=== PATIENT | female | born 1975 | race Caucasian/White ===

== ENCOUNTER 2021-01-23 16:32 | Inpatient (IN) | payer MEDICAID, OTHER ==
[~2021-01-23] VITALS: Ht 177.8 cm; Wt 101.6 kg
[~2021-01-23 16:32] MED LIST: FOLI-130 PO; GABA-1181 PO; LOSA25TA21 PO; MAGN400T7 PO; MIRT30 PO; MULT-1239 PO; THIAMINE HCL100 MG PO; TRAZ150T80 PO
[2021-01-23 17:47] LABS: BASOPHILS % (AUTO) 1.4 % (0.0-2.0); EOSINOPHILS % (AUTO) 1.7 % (1.0-6.0); HEMATOCRIT 28.2 % (36-46); HEMOGLOBIN 8.2 g/dL (12.0-16.0); LYMPHOCYTES # (AUTO) 2.1 K/uL (1.0-4.8); LYMPHOCYTES % (AUTO) 39.9 % (22.0-44.0); MEAN CORPUSCULAR HEMOGLOBIN 19.9 pg (26.0-34.0); MEAN CORPUSCULAR HGB CONC 29.3 G/dL (31.0-37.0); MEAN CORPUSCULAR VOLUME 68 fL (80-100); MONOCYTES # (AUTO) 0.5 K/uL (0.1-1.0); MONOCYTES % (AUTO) 8.7 % (2.0-9.0); NEUTROPHILS # (AUTO) 2.6 K/uL (1.8-7.7); NEUTROPHILS % (AUTO) 48.3 % (40.0-70.0); PLATELET COUNT (AUTO) 261 K/uL (150-450); RED BLOOD CELL COUNT(AUTO) 4.15 MIL/uL (4.00-5.20); RED CELL DISTRIBUTION WIDTH 19.8 % (11.5-14.5)
[2021-01-23 17:55] LABS: ANION GAP 11 mmol/L (8-16); CALCIUM, TOTAL 8.7 mg/dL (8.8-10.5); CARBON DIOXIDE 26 mmol/L (22-29); CHLORIDE 107 mmol/L (98-107); CREATININE 0.87 mg/dL (0.60-1.30); GLOMERULAR FILTR. RATE CALC > 60 mL/min (>60); GLUCOSE,RANDOM 94 mg/dL (70-110); POTASSIUM 4.6 mmol/L (3.5-5.1); SODIUM SERUM 144 mmol/L (136-145); UREA NITROGEN, BLOOD 11 mg/dL (7-18)
[2021-01-23 18:07] LABS: ALANINE AMINOTRANSFERASE 26 U/L (12-78); ALBUMIN 3.4 g/dL (3.4-5.0); ALKALINE PHOSPHATASE 118 U/L (46-116); ASPARTATE AMINOTRANSFERASE 25 U/L (15-37); BILIRUBIN,TOTAL 0.4 mg/dL (0.1-1.0); HCG,QUANTITATIVE 1 mIU/mL (0-6); TOTAL PROTEIN, SERUM 7.9 g/dL (6.4-8.2)
[2021-01-23 18:22] LABS: AMPHET/METH SCREEN,URINE NEGATIVE (NEGATIVE); BARBITURATE SCREEN, URINE NEGATIVE (NEGATIVE); BENZODIAZEPINES SCREEN,URINE NEGATIVE (NEGATIVE); CANNABINOID SCREEN,URINE NEGATIVE (NEGATIVE); COCAINE SCREEN,URINE NEGATIVE (NEGATIVE); METHADONE SCREEN, URINE NEGATIVE (NEGATIVE); OPIATE SCREEN,URINE NEGATIVE (NEGATIVE)
[2021-01-23 18:25] LABS: PHENCYCLIDINE SCREEN,URINE NEGATIVE (NEGATIVE)
[2021-01-23] MEDS ORDERED: ZOLPIDEM TARTRATE 10 MG TABLET PO PRN (18:30)
[2021-01-23] MEDS ORDERED: LORazepam 2 MG TABLET PO PRN (18:30)
[2021-01-23 18:40] LABS: COVID AG,FIA SOURCE NASOPHARYNGEAL
[2021-01-23] MEDS ORDERED: ACETAMINOPHEN 325 MG TABLET PO ONE (22:00)
[2021-01-23] MEDS ORDERED: ONDANSETRON HCL 4 MG TABLET PO ONE (22:00)
[2021-01-24 02:23] VITALS: BP 136/87
[2021-01-24] MEDS ORDERED: INFLUENZA VIRUS VACCINE QVS 2021-22 (6MO+)/PF 60 MCG/0.5 ML SYRINGE IM. ONE (03:30)
[2021-01-24 08:17] LABS: CHOL/HDL RATIO 1.9 (3.9-5.7); FREE T4 (FREE THYROXINE) 0.9 ng/dL (0.76-1.46); THYROID STIMULATING HORMONE 1.11 uIU/mL (0.36-3.74)
[2021-01-24 08:25] VITALS: BP 150/85
[2021-01-24] MEDS ORDERED: IBUPROFEN 600 MG TABLET PO PRN (09:00)
[2021-01-24] MEDS ORDERED: ACETAMINOPHEN 325 MG TABLET PO PRN (09:00)
[2021-01-24] MEDS ORDERED: DOCUSATE SODIUM 100 MG CAPSULE PO PRN (09:00)
[2021-01-24] MEDS ORDERED: ALBUTEROL SULFATE HFA 90 MCG/PUFF 8 GM INHALER IH PRN (09:00)
[2021-01-24] MEDS ORDERED: BENZOCAINE/MENTHOL LOZENGE PO PRN (09:00)
[2021-01-24] MEDS: GABAPENTIN 300 MG CAPSULE PO SCH ×3 (09:00→16:29)
[2021-01-24] MEDS ORDERED: CloNIDine HCL 0.1 MG TABLET PO PRN (09:00)
[2021-01-24] MEDS ORDERED: ONDANSETRON HCL 4 MG TABLET PO PRN (09:00)
[2021-01-24] MEDS ORDERED: LOPERAMIDE HCL 2 MG CAPSULE PO PRN (09:00)
[2021-01-24] MEDS ORDERED: OMEPRAZOLE 20 MG CAPSULE PO PRN (09:00)
[2021-01-24] MEDS ORDERED: MAGNESIUM HYDROXIDE SUSPENSION 30 ML UDCUP PO PRN (09:00)
[2021-01-24] MEDS: MULTIVITAMINS WITH MINERALS, THERAPEUTIC TABLET PO SCH (09:11)
[2021-01-24] MEDS: FOLIC ACID 1 MG TABLET PO SCH (09:11)
[2021-01-24] MEDS: THIAMINE 100 MG TABLET PO SCH (09:11)
[2021-01-24 10:00] VITALS: BP 140/80
[2021-01-24] MEDS: LOSARTAN POTASSIUM 25 MG TABLET PO SCH (13:11)
[2021-01-24 16:20] VITALS: BP 145/86
[2021-01-24] MEDS: TraZODone HCL 150 MG TABLET PO SCH (20:23)
[2021-01-24] MEDS: MIRTAZAPINE 30 MG TABLET PO SCH (20:23)
[2021-01-25 06:03] VITALS: BP 134/86
[2021-01-25 08:31] VITALS: BP 141/91
[2021-01-25] MEDS: LOSARTAN POTASSIUM 25 MG TABLET PO SCH (08:53)
[2021-01-25] MEDS: FOLIC ACID 1 MG TABLET PO SCH (08:54)
[2021-01-25] MEDS: MULTIVITAMINS WITH MINERALS, THERAPEUTIC TABLET PO SCH (08:54)
[2021-01-25] MEDS: THIAMINE 100 MG TABLET PO SCH (08:54)
[2021-01-25] MEDS: GABAPENTIN 300 MG CAPSULE PO SCH ×3 (09:00→17:00)
[2021-01-25 16:23] VITALS: BP 133/77
[2021-01-25] MEDS: MIRTAZAPINE 30 MG TABLET PO SCH (21:00)
[2021-01-25] MEDS: TraZODone HCL 150 MG TABLET PO SCH (21:00)
[2021-01-26 05:07] VITALS: BP 130/72
[2021-01-26] MEDS: LOSARTAN POTASSIUM 25 MG TABLET PO SCH (09:07)
[2021-01-26] MEDS: FOLIC ACID 1 MG TABLET PO SCH (09:07)
[2021-01-26] MEDS: MULTIVITAMINS WITH MINERALS, THERAPEUTIC TABLET PO SCH (09:08)
[2021-01-26] MEDS: THIAMINE 100 MG TABLET PO SCH (09:08)
[2021-01-26] MEDS: GABAPENTIN 300 MG CAPSULE PO SCH ×3 (09:08→17:00)
[2021-01-26] MEDS: BACITRACIN 28 GM OINTMENT TP PRN (09:57)
[2021-01-26 10:32] VITALS: BP 118/65
[2021-01-26 16:16] VITALS: BP 129/86
[2021-01-26] MEDS: HALOPERIDOL 5 MG TABLET PO SCH (21:35)
[2021-01-27 04:10] VITALS: BP 130/68
[2021-01-27 08:23] VITALS: BP 118/85
[2021-01-27] MEDS: MULTIVITAMINS WITH MINERALS, THERAPEUTIC TABLET PO SCH (08:40)
[2021-01-27] MEDS: THIAMINE 100 MG TABLET PO SCH (08:40)
[2021-01-27] MEDS: FOLIC ACID 1 MG TABLET PO SCH (08:40)
[2021-01-27] MEDS: GABAPENTIN 300 MG CAPSULE PO SCH ×5 (08:42→20:42)
[2021-01-27] MEDS: LOSARTAN POTASSIUM 25 MG TABLET PO SCH (08:43)
[2021-01-27 16:13] VITALS: BP 107/74
[2021-01-27] MEDS: HALOPERIDOL 5 MG TABLET PO SCH (20:35)
[2021-01-28 04:37] VITALS: BP 120/70
[2021-01-28 08:31] VITALS: BP 121/84
[2021-01-28] MEDS: FOLIC ACID 1 MG TABLET PO SCH (08:44)
[2021-01-28] MEDS: THIAMINE 100 MG TABLET PO SCH (08:44)
[2021-01-28] MEDS: LOSARTAN POTASSIUM 25 MG TABLET PO SCH (08:44)
[2021-01-28] MEDS: MULTIVITAMINS WITH MINERALS, THERAPEUTIC TABLET PO SCH (08:45)
[2021-01-28] MEDS: GABAPENTIN 300 MG CAPSULE PO SCH ×3 (08:49→17:00)
[2021-01-28 16:20] VITALS: BP 120/77
[2021-01-28] MEDS: HALOPERIDOL 5 MG TABLET PO SCH (21:00)
[2021-01-29 02:07] VITALS: BP 112/67
[2021-01-29 07:36] LABS: COVID AG,FIA SOURCE NASOPHARYNGEAL
[2021-01-29] MEDS: MULTIVITAMINS WITH MINERALS, THERAPEUTIC TABLET PO SCH (08:05)
[2021-01-29] MEDS: FOLIC ACID 1 MG TABLET PO SCH (08:05)
[2021-01-29] MEDS: LOSARTAN POTASSIUM 25 MG TABLET PO SCH (08:05)
[2021-01-29] MEDS: THIAMINE 100 MG TABLET PO SCH (08:05)
[2021-01-29] MEDS: GABAPENTIN 300 MG CAPSULE PO SCH ×3 (08:06→16:34)
[2021-01-29 08:14] VITALS: BP 129/74
[2021-01-29 16:09] VITALS: BP 130/77
[2021-01-29] MEDS: PETROLATUM,WHITE 28 GM JELLY TP PRN (16:39)
[2021-01-29] MEDS: HALOPERIDOL 5 MG TABLET PO SCH (20:17)
[2021-01-30 02:09] VITALS: BP 122/73
[2021-01-30] MEDS: MULTIVITAMINS WITH MINERALS, THERAPEUTIC TABLET PO SCH (08:05)
[2021-01-30] MEDS: FOLIC ACID 1 MG TABLET PO SCH (08:05)
[2021-01-30] MEDS: LOSARTAN POTASSIUM 25 MG TABLET PO SCH (08:05)
[2021-01-30] MEDS: THIAMINE 100 MG TABLET PO SCH (08:05)
[2021-01-30] MEDS: GABAPENTIN 300 MG CAPSULE PO SCH ×3 (08:05→16:36)
[2021-01-30 08:30] VITALS: BP 144/87
[2021-01-30] MEDS: BACITRACIN 28 GM OINTMENT TP PRN (08:56)
[2021-01-30 16:12] VITALS: BP 134/76
[2021-01-30] MEDS: HALOPERIDOL 5 MG TABLET PO SCH (21:00)
[2021-01-31 00:48] VITALS: BP 130/86
[2021-01-31] MEDS: LOSARTAN POTASSIUM 25 MG TABLET PO SCH (08:08)
[2021-01-31] MEDS: MULTIVITAMINS WITH MINERALS, THERAPEUTIC TABLET PO SCH (08:09)
[2021-01-31] MEDS: GABAPENTIN 300 MG CAPSULE PO SCH ×3 (08:09→16:43)
[2021-01-31] MEDS: THIAMINE 100 MG TABLET PO SCH (08:09)
[2021-01-31] MEDS: BACITRACIN 28 GM OINTMENT TP PRN (08:09)
[2021-01-31] MEDS: FOLIC ACID 1 MG TABLET PO SCH (08:09)
[2021-01-31 08:35] VITALS: BP 136/85
[2021-01-31 16:30] VITALS: BP 118/82
[2021-01-31] MEDS: HALOPERIDOL 5 MG TABLET PO SCH (20:34)
[2021-02-01 05:55] VITALS: BP 132/76
[2021-02-01] MEDS: MULTIVITAMINS WITH MINERALS, THERAPEUTIC TABLET PO SCH (08:40)
[2021-02-01] MEDS: GABAPENTIN 300 MG CAPSULE PO SCH ×3 (08:40→17:00)
[2021-02-01] MEDS: FOLIC ACID 1 MG TABLET PO SCH (08:40)
[2021-02-01] MEDS: LOSARTAN POTASSIUM 25 MG TABLET PO SCH (08:40)
[2021-02-01] MEDS: THIAMINE 100 MG TABLET PO SCH (08:41)
[2021-02-01 16:26] VITALS: BP 120/82
[2021-02-01] MEDS: HALOPERIDOL 5 MG TABLET PO SCH (20:13)
[2021-02-02 00:58] VITALS: BP 112/77
[2021-02-02] MEDS: LOSARTAN POTASSIUM 25 MG TABLET PO SCH (08:39)
[2021-02-02] MEDS: THIAMINE 100 MG TABLET PO SCH (08:40)
[2021-02-02] MEDS: FOLIC ACID 1 MG TABLET PO SCH (08:40)
[2021-02-02] MEDS: MULTIVITAMINS WITH MINERALS, THERAPEUTIC TABLET PO SCH (08:40)
[2021-02-02] MEDS: GABAPENTIN 300 MG CAPSULE PO SCH ×3 (08:40→16:36)
[2021-02-02 16:12] VITALS: BP 120/89
[2021-02-02] MEDS: HALOPERIDOL 10 MG TABLET PO SCH (20:21)
[2021-02-03 02:16] VITALS: BP 126/81
[2021-02-03 08:16] VITALS: BP 130/82
[2021-02-03] MEDS: GABAPENTIN 300 MG CAPSULE PO SCH ×3 (09:00→16:28)
[2021-02-03] MEDS: LOSARTAN POTASSIUM 25 MG TABLET PO SCH (09:04)
[2021-02-03] MEDS: THIAMINE 100 MG TABLET PO SCH (09:04)
[2021-02-03] MEDS: MULTIVITAMINS WITH MINERALS, THERAPEUTIC TABLET PO SCH (09:04)
[2021-02-03] MEDS: FOLIC ACID 1 MG TABLET PO SCH (09:04)
[2021-02-03 16:34] VITALS: BP 129/78
[2021-02-03] MEDS ORDERED: HALOPERIDOL LACTATE 5 MG/ML VIAL IM ONE (19:00)
[2021-02-03] MEDS ORDERED: LORazepam 2 MG/ML VIAL IM ONE (19:00)
[2021-02-03] MEDS ORDERED: DiphenhydrAMINE HCL 50 MG/ML VIAL IM ONE (19:00)
[2021-02-03] MEDS: HALOPERIDOL 10 MG TABLET PO SCH (20:49)
[2021-02-04 00:25] VITALS: BP 122/73
[2021-02-04] MEDS: THIAMINE 100 MG TABLET PO SCH (08:47)
[2021-02-04] MEDS: FOLIC ACID 1 MG TABLET PO SCH (08:47)
[2021-02-04] MEDS: LOSARTAN POTASSIUM 25 MG TABLET PO SCH (08:47)
[2021-02-04] MEDS: MULTIVITAMINS WITH MINERALS, THERAPEUTIC TABLET PO SCH (08:47)
[2021-02-04] MEDS: GABAPENTIN 300 MG CAPSULE PO SCH ×3 (08:52→17:00)
[2021-02-04 16:03] VITALS: BP 128/70
[2021-02-04] MEDS: HALOPERIDOL 10 MG TABLET PO SCH (21:00)
[2021-02-05 00:33] VITALS: BP 122/68
[2021-02-05 07:28] LABS: COVID AG,FIA SOURCE NASAL SWAB
[2021-02-05] MEDS: GABAPENTIN 300 MG CAPSULE PO SCH ×3 (08:08→17:42)
[2021-02-05] MEDS: THIAMINE 100 MG TABLET PO SCH (08:08)
[2021-02-05] MEDS: FOLIC ACID 1 MG TABLET PO SCH (08:09)
[2021-02-05] MEDS: MULTIVITAMINS WITH MINERALS, THERAPEUTIC TABLET PO SCH (08:09)
[2021-02-05] MEDS: LOSARTAN POTASSIUM 25 MG TABLET PO SCH (08:09)
[2021-02-05 09:56] VITALS: BP 120/82
[2021-02-05] MEDS ORDERED: HALOPERIDOL LACTATE 5 MG/ML VIAL IM PRN (15:45)
[2021-02-05 16:34] VITALS: BP 124/86
[2021-02-05] MEDS: HALOPERIDOL 10 MG TABLET PO SCH (20:22)
[2021-02-06 04:19] VITALS: BP 116/74
[2021-02-06] MEDS: LOSARTAN POTASSIUM 25 MG TABLET PO SCH (08:39)
[2021-02-06] MEDS: THIAMINE 100 MG TABLET PO SCH (08:39)
[2021-02-06] MEDS: FOLIC ACID 1 MG TABLET PO SCH (08:39)
[2021-02-06] MEDS: MULTIVITAMINS WITH MINERALS, THERAPEUTIC TABLET PO SCH (08:39)
[2021-02-06] MEDS: GABAPENTIN 300 MG CAPSULE PO SCH ×3 (08:44→16:09)
[2021-02-06 16:09] VITALS: BP 106/81
[2021-02-06] MEDS: HALOPERIDOL 10 MG TABLET PO SCH (20:26)
[2021-02-07 01:07] VITALS: BP 100/72
[2021-02-07] MEDS: THIAMINE 100 MG TABLET PO SCH (08:40)
[2021-02-07] MEDS: LOSARTAN POTASSIUM 25 MG TABLET PO SCH (08:40)
[2021-02-07] MEDS: FOLIC ACID 1 MG TABLET PO SCH (08:40)
[2021-02-07] MEDS: MULTIVITAMINS WITH MINERALS, THERAPEUTIC TABLET PO SCH (08:40)
[2021-02-07] MEDS: GABAPENTIN 300 MG CAPSULE PO SCH ×3 (08:41→17:00)
[2021-02-07 16:18] VITALS: BP 120/85
[2021-02-07] MEDS: HALOPERIDOL 10 MG TABLET PO SCH (20:19)
[2021-02-08 00:36] VITALS: BP 112/73
[2021-02-08] MEDS: MULTIVITAMINS WITH MINERALS, THERAPEUTIC TABLET PO SCH (08:24)
[2021-02-08] MEDS: THIAMINE 100 MG TABLET PO SCH (08:24)
[2021-02-08] MEDS: FOLIC ACID 1 MG TABLET PO SCH (08:24)
[2021-02-08] MEDS: LOSARTAN POTASSIUM 25 MG TABLET PO SCH (08:24)
[2021-02-08] MEDS: GABAPENTIN 300 MG CAPSULE PO SCH ×3 (08:31→17:00)
[2021-02-08 08:32] VITALS: BP 129/87
[2021-02-08 16:23] VITALS: BP 110/89
[2021-02-08] MEDS: HALOPERIDOL 10 MG TABLET PO SCH (20:33)
[2021-02-09 01:09] VITALS: BP 130/76
[2021-02-09] MEDS: GABAPENTIN 300 MG CAPSULE PO SCH ×3 (08:18→16:22)
[2021-02-09] MEDS: FOLIC ACID 1 MG TABLET PO SCH (08:18)
[2021-02-09] MEDS: LOSARTAN POTASSIUM 25 MG TABLET PO SCH (08:18)
[2021-02-09] MEDS: MULTIVITAMINS WITH MINERALS, THERAPEUTIC TABLET PO SCH (08:19)
[2021-02-09] MEDS: THIAMINE 100 MG TABLET PO SCH (08:19)
[2021-02-09 08:21] VITALS: BP 112/70
[2021-02-09 16:17] VITALS: BP 104/67
[2021-02-09] MEDS: HALOPERIDOL 10 MG TABLET PO SCH (20:01)
[2021-02-10 06:40] VITALS: BP 120/68
[2021-02-10] MEDS: FOLIC ACID 1 MG TABLET PO SCH (08:29)
[2021-02-10] MEDS: THIAMINE 100 MG TABLET PO SCH (08:29)
[2021-02-10] MEDS: MULTIVITAMINS WITH MINERALS, THERAPEUTIC TABLET PO SCH (08:29)
[2021-02-10] MEDS: LOSARTAN POTASSIUM 25 MG TABLET PO SCH (08:29)
[2021-02-10] MEDS: GABAPENTIN 300 MG CAPSULE PO SCH ×3 (08:35→16:09)
[2021-02-10 08:45] VITALS: BP 105/68
[2021-02-10 16:35] VITALS: BP 101/68
[2021-02-10] MEDS: HALOPERIDOL 10 MG TABLET PO SCH (20:41)
[2021-02-11 05:07] VITALS: BP 118/64
[2021-02-11] MEDS: THIAMINE 100 MG TABLET PO SCH (08:09)
[2021-02-11] MEDS: LOSARTAN POTASSIUM 25 MG TABLET PO SCH (08:09)
[2021-02-11] MEDS: MULTIVITAMINS WITH MINERALS, THERAPEUTIC TABLET PO SCH (08:09)
[2021-02-11] MEDS: FOLIC ACID 1 MG TABLET PO SCH (08:09)
[2021-02-11] MEDS: GABAPENTIN 300 MG CAPSULE PO SCH ×3 (08:11→16:40)
[2021-02-11 08:54] VITALS: BP 120/83
[2021-02-11 16:14] VITALS: BP 110/74
[2021-02-11] MEDS: HALOPERIDOL 10 MG TABLET PO SCH (20:40)
[2021-02-12 01:41] VITALS: BP 116/77
[2021-02-12 08:36] VITALS: BP 117/77
[2021-02-12] MEDS: LOSARTAN POTASSIUM 25 MG TABLET PO SCH (08:46)
[2021-02-12] MEDS: FOLIC ACID 1 MG TABLET PO SCH (08:46)
[2021-02-12] MEDS: THIAMINE 100 MG TABLET PO SCH (08:46)
[2021-02-12] MEDS: MULTIVITAMINS WITH MINERALS, THERAPEUTIC TABLET PO SCH (08:46)
[2021-02-12] MEDS: GABAPENTIN 300 MG CAPSULE PO SCH ×3 (08:47→16:28)
[2021-02-12 09:41] LABS: COVID AG,FIA SOURCE NASOPHARYNGEAL
[2021-02-12 16:08] VITALS: BP 122/81
[2021-02-12] MEDS: BENZTROPINE MESYLATE 1 MG TABLET PO SCH (20:38)
[2021-02-12] MEDS: HALOPERIDOL 10 MG TABLET PO SCH (20:38)
[2021-02-13 00:39] VITALS: BP 116/78
[2021-02-13] MEDS: MULTIVITAMINS WITH MINERALS, THERAPEUTIC TABLET PO SCH (08:41)
[2021-02-13] MEDS: BENZTROPINE MESYLATE 1 MG TABLET PO SCH ×2 (08:41→16:33)
[2021-02-13] MEDS: THIAMINE 100 MG TABLET PO SCH (08:41)
[2021-02-13] MEDS: FOLIC ACID 1 MG TABLET PO SCH (08:41)
[2021-02-13] MEDS: LOSARTAN POTASSIUM 25 MG TABLET PO SCH (08:41)
[2021-02-13 09:08] VITALS: BP 112/78
[2021-02-13 16:11] VITALS: BP 128/83
[2021-02-13] MEDS: HALOPERIDOL 10 MG TABLET PO SCH (20:32)
[2021-02-14 00:29] VITALS: BP 116/76
[2021-02-14] MEDS: MULTIVITAMINS WITH MINERALS, THERAPEUTIC TABLET PO SCH (08:35)
[2021-02-14] MEDS: BENZTROPINE MESYLATE 1 MG TABLET PO SCH ×3 (08:35→20:25)
[2021-02-14] MEDS: LOSARTAN POTASSIUM 25 MG TABLET PO SCH (08:35)
[2021-02-14] MEDS: FOLIC ACID 1 MG TABLET PO SCH (08:35)
[2021-02-14] MEDS: THIAMINE 100 MG TABLET PO SCH (08:35)
[2021-02-14 10:21] VITALS: BP 115/72
[2021-02-14 16:31] VITALS: BP 112/71
[2021-02-14] MEDS: HALOPERIDOL 10 MG TABLET PO SCH (20:19)
[2021-02-15 01:33] VITALS: BP 118/74
[2021-02-15] MEDS: MULTIVITAMINS WITH MINERALS, THERAPEUTIC TABLET PO SCH (08:32)
[2021-02-15] MEDS: BENZTROPINE MESYLATE 1 MG TABLET PO SCH ×2 (08:32→16:14)
[2021-02-15] MEDS: LOSARTAN POTASSIUM 25 MG TABLET PO SCH (08:32)
[2021-02-15] MEDS: FOLIC ACID 1 MG TABLET PO SCH (08:32)
[2021-02-15] MEDS: THIAMINE 100 MG TABLET PO SCH (08:33)
[2021-02-15 08:37] VITALS: BP 118/79
[2021-02-15 16:15] VITALS: BP 111/74
[2021-02-15] MEDS: HALOPERIDOL 10 MG TABLET PO SCH (20:26)
[2021-02-16 01:53] VITALS: BP 116/68
[2021-02-16] MEDS: THIAMINE 100 MG TABLET PO SCH (08:10)
[2021-02-16] MEDS: BENZTROPINE MESYLATE 1 MG TABLET PO SCH ×2 (08:10→17:00)
[2021-02-16] MEDS: MULTIVITAMINS WITH MINERALS, THERAPEUTIC TABLET PO SCH (08:10)
[2021-02-16] MEDS: FOLIC ACID 1 MG TABLET PO SCH (08:10)
[2021-02-16] MEDS: LOSARTAN POTASSIUM 25 MG TABLET PO SCH (08:10)
[2021-02-16 08:29] VITALS: BP 109/79
[2021-02-16 17:13] VITALS: BP 115/77
[2021-02-16] MEDS: HALOPERIDOL 10 MG TABLET PO SCH (21:00)
[2021-02-17 00:55] VITALS: BP 110/73
[2021-02-17] MEDS: LOSARTAN POTASSIUM 25 MG TABLET PO SCH (08:10)
[2021-02-17] MEDS: MULTIVITAMINS WITH MINERALS, THERAPEUTIC TABLET PO SCH (08:10)
[2021-02-17] MEDS: THIAMINE 100 MG TABLET PO SCH (08:10)
[2021-02-17] MEDS: FOLIC ACID 1 MG TABLET PO SCH (08:10)
[2021-02-17] MEDS: BENZTROPINE MESYLATE 1 MG TABLET PO SCH ×2 (08:10→16:59)
[2021-02-17 08:31] VITALS: BP 109/76
[2021-02-17 16:21] VITALS: BP 117/77
[2021-02-17] MEDS: HALOPERIDOL 10 MG TABLET PO SCH (21:00)
[2021-02-18 01:32] VITALS: BP 114/61
[2021-02-18] MEDS: MULTIVITAMINS WITH MINERALS, THERAPEUTIC TABLET PO SCH (08:17)
[2021-02-18] MEDS: BENZTROPINE MESYLATE 1 MG TABLET PO SCH ×2 (08:17→16:15)
[2021-02-18] MEDS: THIAMINE 100 MG TABLET PO SCH (08:17)
[2021-02-18] MEDS: FOLIC ACID 1 MG TABLET PO SCH (08:17)
[2021-02-18] MEDS: LOSARTAN POTASSIUM 25 MG TABLET PO SCH (08:18)
[2021-02-18 08:36] VITALS: BP 114/81
[2021-02-18 16:18] VITALS: BP 132/70
[2021-02-18] MEDS: HALOPERIDOL 10 MG TABLET PO SCH (20:31)
[2021-02-19 00:34] VITALS: BP 122/74
[2021-02-19 08:09] VITALS: BP 110/70
[2021-02-19] MEDS: THIAMINE 100 MG TABLET PO SCH (08:16)
[2021-02-19] MEDS: BENZTROPINE MESYLATE 1 MG TABLET PO SCH ×2 (08:16→16:35)
[2021-02-19] MEDS: FOLIC ACID 1 MG TABLET PO SCH (08:16)
[2021-02-19] MEDS: MULTIVITAMINS WITH MINERALS, THERAPEUTIC TABLET PO SCH (08:16)
[2021-02-19] MEDS: LOSARTAN POTASSIUM 25 MG TABLET PO SCH (08:16)
[2021-02-19 10:03] LABS: GLUCOMETER DEV NAME(LOC) POC.BV
[2021-02-19 16:28] VITALS: BP 116/63
[2021-02-19] MEDS: HALOPERIDOL 10 MG TABLET PO SCH (21:02)
[2021-02-20 00:41] VITALS: BP 114/75
[2021-02-20] MEDS: LOSARTAN POTASSIUM 25 MG TABLET PO SCH (08:23)
[2021-02-20] MEDS: MULTIVITAMINS WITH MINERALS, THERAPEUTIC TABLET PO SCH (08:23)
[2021-02-20] MEDS: FOLIC ACID 1 MG TABLET PO SCH (08:23)
[2021-02-20] MEDS: THIAMINE 100 MG TABLET PO SCH (08:23)
[2021-02-20] MEDS: BENZTROPINE MESYLATE 1 MG TABLET PO SCH ×2 (08:23→16:13)
[2021-02-20 08:50] VITALS: BP 123/79
[2021-02-20 16:10] VITALS: BP 113/75
[2021-02-20] MEDS: HALOPERIDOL 10 MG TABLET PO SCH (20:43)
[2021-02-21 00:11] VITALS: BP 116/71
[2021-02-21] MEDS: THIAMINE 100 MG TABLET PO SCH (08:11)
[2021-02-21] MEDS: MULTIVITAMINS WITH MINERALS, THERAPEUTIC TABLET PO SCH (08:11)
[2021-02-21] MEDS: FOLIC ACID 1 MG TABLET PO SCH (08:11)
[2021-02-21] MEDS: BENZTROPINE MESYLATE 1 MG TABLET PO SCH ×2 (08:11→17:00)
[2021-02-21] MEDS: LOSARTAN POTASSIUM 25 MG TABLET PO SCH (08:11)
[2021-02-21 08:42] VITALS: BP 123/84
[2021-02-21 16:13] VITALS: BP 123/85
[2021-02-21] MEDS: HALOPERIDOL 10 MG TABLET PO SCH (20:17)
[2021-02-22 00:40] VITALS: BP 110/78
[2021-02-22 08:07] VITALS: BP 114/83
[2021-02-22] MEDS: FOLIC ACID 1 MG TABLET PO SCH (08:10)
[2021-02-22] MEDS: THIAMINE 100 MG TABLET PO SCH (08:10)
[2021-02-22] MEDS: MULTIVITAMINS WITH MINERALS, THERAPEUTIC TABLET PO SCH (08:10)
[2021-02-22] MEDS: BENZTROPINE MESYLATE 1 MG TABLET PO SCH ×2 (08:10→16:21)
[2021-02-22] MEDS: LOSARTAN POTASSIUM 25 MG TABLET PO SCH (08:10)
[2021-02-22 16:19] VITALS: BP 126/84
[2021-02-22] MEDS: HALOPERIDOL 10 MG TABLET PO SCH (20:25)
[2021-02-23 01:55] VITALS: BP 120/82
[2021-02-23 08:24] VITALS: BP 113/78
[2021-02-23] MEDS: MULTIVITAMINS WITH MINERALS, THERAPEUTIC TABLET PO SCH (08:42)
[2021-02-23] MEDS: FOLIC ACID 1 MG TABLET PO SCH (08:42)
[2021-02-23] MEDS: THIAMINE 100 MG TABLET PO SCH (08:42)
[2021-02-23] MEDS: LOSARTAN POTASSIUM 25 MG TABLET PO SCH (08:42)
[2021-02-23] MEDS: BENZTROPINE MESYLATE 1 MG TABLET PO SCH ×2 (08:43→16:22)
[2021-02-23 16:33] VITALS: BP 111/75
[2021-02-23] MEDS: HALOPERIDOL 10 MG TABLET PO SCH (20:26)
[2021-02-24 05:31] VITALS: BP 110/76
[2021-02-24 08:13] VITALS: BP 120/86
[2021-02-24] MEDS: MULTIVITAMINS WITH MINERALS, THERAPEUTIC TABLET PO SCH (08:31)
[2021-02-24] MEDS: FOLIC ACID 1 MG TABLET PO SCH (08:31)
[2021-02-24] MEDS: THIAMINE 100 MG TABLET PO SCH (08:31)
[2021-02-24] MEDS: BENZTROPINE MESYLATE 1 MG TABLET PO SCH ×2 (08:31→16:25)
[2021-02-24] MEDS: LOSARTAN POTASSIUM 25 MG TABLET PO SCH (08:31)
[2021-02-24 16:19] VITALS: BP 118/80
[2021-02-24] MEDS: HALOPERIDOL 10 MG TABLET PO SCH (20:22)
[2021-02-25 05:10] VITALS: BP 116/74
[2021-02-25] MEDS: THIAMINE 100 MG TABLET PO SCH (08:02)
[2021-02-25] MEDS: BENZTROPINE MESYLATE 1 MG TABLET PO SCH ×2 (08:02→17:00)
[2021-02-25] MEDS: FOLIC ACID 1 MG TABLET PO SCH (08:02)
[2021-02-25] MEDS: MULTIVITAMINS WITH MINERALS, THERAPEUTIC TABLET PO SCH (08:02)
[2021-02-25] MEDS: LOSARTAN POTASSIUM 25 MG TABLET PO SCH (08:02)
[2021-02-25 08:23] VITALS: BP 118/79
[2021-02-25 16:38] VITALS: BP 126/93
[2021-02-25] MEDS: HALOPERIDOL 10 MG TABLET PO SCH (20:51)
[2021-02-26 01:08] VITALS: BP 118/84
[2021-02-26 08:23] VITALS: BP 122/78
[2021-02-26] MEDS: FOLIC ACID 1 MG TABLET PO SCH (08:35)
[2021-02-26] MEDS: MULTIVITAMINS WITH MINERALS, THERAPEUTIC TABLET PO SCH (08:35)
[2021-02-26] MEDS: BENZTROPINE MESYLATE 1 MG TABLET PO SCH ×2 (08:35→17:00)
[2021-02-26] MEDS: LOSARTAN POTASSIUM 25 MG TABLET PO SCH (08:35)
[2021-02-26] MEDS: THIAMINE 100 MG TABLET PO SCH (08:35)
[2021-02-26 10:31] LABS: GLUCOMETER DEV NAME(LOC) POC.BV
[2021-02-26 16:22] VITALS: BP 111/79
[2021-02-26] MEDS: HALOPERIDOL 10 MG TABLET PO SCH (21:00)
[2021-02-27 00:52] VITALS: BP 108/77
[2021-02-27 08:00] VITALS: BP 110/70
[2021-02-27] MEDS: LOSARTAN POTASSIUM 25 MG TABLET PO SCH (08:19)
[2021-02-27] MEDS: BENZTROPINE MESYLATE 1 MG TABLET PO SCH ×2 (08:19→16:55)
[2021-02-27] MEDS: FOLIC ACID 1 MG TABLET PO SCH (08:19)
[2021-02-27] MEDS: THIAMINE 100 MG TABLET PO SCH (08:19)
[2021-02-27] MEDS: MULTIVITAMINS WITH MINERALS, THERAPEUTIC TABLET PO SCH (08:19)
[2021-02-27 16:14] VITALS: BP 112/70
[2021-02-27] MEDS: HALOPERIDOL 10 MG TABLET PO SCH (20:11)
[2021-02-28 01:50] VITALS: BP 110/66
[2021-02-28] MEDS: MAG HYDROX/AL HYDROX/SIMETH ES 30 ML SUSPENSION UDCUP PO PRN (03:11)
[2021-02-28] MEDS: LOSARTAN POTASSIUM 25 MG TABLET PO SCH (08:18)
[2021-02-28] MEDS: FOLIC ACID 1 MG TABLET PO SCH (08:18)
[2021-02-28] MEDS: MULTIVITAMINS WITH MINERALS, THERAPEUTIC TABLET PO SCH (08:18)
[2021-02-28] MEDS: BENZTROPINE MESYLATE 1 MG TABLET PO SCH ×3 (08:19→16:42)
[2021-02-28] MEDS: THIAMINE 100 MG TABLET PO SCH (08:19)
[2021-02-28 08:28] VITALS: BP 144/84
[2021-02-28 16:35] VITALS: BP 105/69
[2021-02-28] MEDS: HALOPERIDOL 10 MG TABLET PO SCH (20:51)
[2021-03-01 01:09] VITALS: BP 117/78
[2021-03-01 08:16] VITALS: BP 108/77
[2021-03-01] MEDS: FOLIC ACID 1 MG TABLET PO SCH (08:57)
[2021-03-01] MEDS: LOSARTAN POTASSIUM 25 MG TABLET PO SCH (08:57)
[2021-03-01] MEDS: MULTIVITAMINS WITH MINERALS, THERAPEUTIC TABLET PO SCH (08:57)
[2021-03-01] MEDS: BENZTROPINE MESYLATE 1 MG TABLET PO SCH ×2 (08:57→16:32)
[2021-03-01] MEDS: THIAMINE 100 MG TABLET PO SCH (08:57)
[2021-03-01 16:01] VITALS: BP 124/82
[2021-03-01] MEDS: HALOPERIDOL 10 MG TABLET PO SCH (21:00)
[2021-03-02 00:24] VITALS: BP 112/77
[2021-03-02 08:34] VITALS: BP 122/96
[2021-03-02] MEDS: FOLIC ACID 1 MG TABLET PO SCH (09:41)
[2021-03-02] MEDS: MULTIVITAMINS WITH MINERALS, THERAPEUTIC TABLET PO SCH (09:41)
[2021-03-02] MEDS: THIAMINE 100 MG TABLET PO SCH (09:41)
[2021-03-02] MEDS: LOSARTAN POTASSIUM 25 MG TABLET PO SCH (09:41)
[2021-03-02] MEDS: BENZTROPINE MESYLATE 1 MG TABLET PO SCH ×2 (09:42→17:00)
[2021-03-02 16:20] VITALS: BP 120/76
[2021-03-02] MEDS: HALOPERIDOL 10 MG TABLET PO SCH (21:00)
[2021-03-03 01:40] VITALS: BP 119/75
[2021-03-03 08:43] VITALS: BP 108/84
[2021-03-03] MEDS: BENZTROPINE MESYLATE 1 MG TABLET PO SCH ×2 (09:02→17:00)
[2021-03-03] MEDS: THIAMINE 100 MG TABLET PO SCH (09:02)
[2021-03-03] MEDS: LOSARTAN POTASSIUM 25 MG TABLET PO SCH (09:02)
[2021-03-03] MEDS: FOLIC ACID 1 MG TABLET PO SCH (09:02)
[2021-03-03] MEDS: MULTIVITAMINS WITH MINERALS, THERAPEUTIC TABLET PO SCH (09:02)
[2021-03-03 12:25] VITALS: BP 112/75
[2021-03-03 16:18] VITALS: BP 122/89
[2021-03-03] MEDS: HALOPERIDOL 10 MG TABLET PO SCH (21:00)
[2021-03-04] MEDS ORDERED: LORazepam 2 MG/ML VIAL IM ONE
[2021-03-04] MEDS ORDERED: DiphenhydrAMINE HCL 50 MG/ML VIAL IM ONE
[2021-03-04] MEDS ORDERED: HALOPERIDOL LACTATE 5 MG/ML VIAL IM ONE
[2021-03-04 00:25] VITALS: BP 112/75
[2021-03-04] MEDS: FOLIC ACID 1 MG TABLET PO SCH (08:14)
[2021-03-04] MEDS: LOSARTAN POTASSIUM 25 MG TABLET PO SCH (08:14)
[2021-03-04] MEDS: MULTIVITAMINS WITH MINERALS, THERAPEUTIC TABLET PO SCH (08:14)
[2021-03-04] MEDS: THIAMINE 100 MG TABLET PO SCH (08:14)
[2021-03-04] MEDS: BENZTROPINE MESYLATE 1 MG TABLET PO SCH ×2 (08:14→17:00)
[2021-03-04 08:37] VITALS: BP 119/78
[2021-03-05 07:07] VITALS: BP 120/88
[2021-03-05] MEDS: THIAMINE 100 MG TABLET PO SCH (08:15)
[2021-03-05] MEDS: BENZTROPINE MESYLATE 1 MG TABLET PO SCH ×2 (08:15→16:30)
[2021-03-05] MEDS: HALOPERIDOL 10 MG TABLET PO SCH ×2 (08:15→09:00)
[2021-03-05] MEDS: MULTIVITAMINS WITH MINERALS, THERAPEUTIC TABLET PO SCH (08:15)
[2021-03-05] MEDS: FOLIC ACID 1 MG TABLET PO SCH (08:15)
[2021-03-05] MEDS: LOSARTAN POTASSIUM 25 MG TABLET PO SCH (09:22)
[2021-03-05 10:17] VITALS: BP 108/79
[2021-03-05 16:38] VITALS: BP 117/65
[2021-03-06 00:20] VITALS: BP 114/69
[2021-03-06] MEDS: HALOPERIDOL 10 MG TABLET PO SCH (08:04)
[2021-03-06] MEDS: FOLIC ACID 1 MG TABLET PO SCH (08:04)
[2021-03-06] MEDS: BENZTROPINE MESYLATE 1 MG TABLET PO SCH ×2 (08:04→16:26)
[2021-03-06] MEDS: LOSARTAN POTASSIUM 25 MG TABLET PO SCH (08:04)
[2021-03-06] MEDS: THIAMINE 100 MG TABLET PO SCH (08:04)
[2021-03-06] MEDS: MULTIVITAMINS WITH MINERALS, THERAPEUTIC TABLET PO SCH (08:04)
[2021-03-06 08:33] VITALS: BP 124/87
[2021-03-06 16:05] LABS: GLUCOMETER DEV NAME(LOC) POC.BV
[2021-03-06 16:15] VITALS: BP 126/83
[2021-03-07 00:44] VITALS: BP 114/87
[2021-03-07] MEDS: BENZTROPINE MESYLATE 1 MG TABLET PO SCH ×2 (08:23→17:00)
[2021-03-07] MEDS: HALOPERIDOL 10 MG TABLET PO SCH (08:23)
[2021-03-07] MEDS: FOLIC ACID 1 MG TABLET PO SCH (08:23)
[2021-03-07] MEDS: THIAMINE 100 MG TABLET PO SCH (08:23)
[2021-03-07] MEDS: MULTIVITAMINS WITH MINERALS, THERAPEUTIC TABLET PO SCH (08:23)
[2021-03-07] MEDS: LOSARTAN POTASSIUM 25 MG TABLET PO SCH (08:23)
[2021-03-07 08:30] VITALS: BP 133/86
[2021-03-07 16:10] VITALS: BP 135/76
[2021-03-08] MEDS: MULTIVITAMINS WITH MINERALS, THERAPEUTIC TABLET PO SCH (08:31)
[2021-03-08] MEDS: LOSARTAN POTASSIUM 25 MG TABLET PO SCH (08:31)
[2021-03-08] MEDS: HALOPERIDOL 10 MG TABLET PO SCH (08:31)
[2021-03-08] MEDS: THIAMINE 100 MG TABLET PO SCH (08:31)
[2021-03-08] MEDS: BENZTROPINE MESYLATE 1 MG TABLET PO SCH ×2 (08:31→16:47)
[2021-03-08] MEDS: FOLIC ACID 1 MG TABLET PO SCH (08:31)
[2021-03-08 08:33] VITALS: BP 124/83
[2021-03-08 16:21] VITALS: BP 118/71
[2021-03-09 01:04] VITALS: BP 114/68
[2021-03-09 08:11] VITALS: BP 112/72
[2021-03-09] MEDS: LOSARTAN POTASSIUM 25 MG TABLET PO SCH (08:30)
[2021-03-09] MEDS: MULTIVITAMINS WITH MINERALS, THERAPEUTIC TABLET PO SCH (08:30)
[2021-03-09] MEDS: FOLIC ACID 1 MG TABLET PO SCH (08:30)
[2021-03-09] MEDS: BENZTROPINE MESYLATE 1 MG TABLET PO SCH ×2 (08:30→16:38)
[2021-03-09] MEDS: THIAMINE 100 MG TABLET PO SCH (08:32)
[2021-03-09] MEDS: HALOPERIDOL 10 MG TABLET PO SCH (09:00)
[2021-03-09 16:09] VITALS: BP 128/72
[2021-03-10 06:11] VITALS: BP 125/73
[2021-03-10 08:12] VITALS: BP 105/79
[2021-03-10] MEDS: THIAMINE 100 MG TABLET PO SCH (08:16)
[2021-03-10] MEDS: MULTIVITAMINS WITH MINERALS, THERAPEUTIC TABLET PO SCH (08:16)
[2021-03-10] MEDS: FOLIC ACID 1 MG TABLET PO SCH (08:16)
[2021-03-10] MEDS: HALOPERIDOL 10 MG TABLET PO SCH (08:21)
[2021-03-10] MEDS: BENZTROPINE MESYLATE 1 MG TABLET PO SCH ×2 (08:22→17:00)
[2021-03-10] MEDS: LOSARTAN POTASSIUM 25 MG TABLET PO SCH (08:23)
[2021-03-10 16:36] VITALS: BP 132/62
[2021-03-11] MEDS: THIAMINE 100 MG TABLET PO SCH (08:01)
[2021-03-11] MEDS: BENZTROPINE MESYLATE 1 MG TABLET PO SCH ×2 (08:01→16:05)
[2021-03-11] MEDS: HALOPERIDOL 10 MG TABLET PO SCH (08:01)
[2021-03-11] MEDS: FOLIC ACID 1 MG TABLET PO SCH (08:01)
[2021-03-11] MEDS: LOSARTAN POTASSIUM 25 MG TABLET PO SCH (08:01)
[2021-03-11] MEDS: MULTIVITAMINS WITH MINERALS, THERAPEUTIC TABLET PO SCH (08:01)
[2021-03-11 08:08] VITALS: BP 130/94
[2021-03-11 16:14] VITALS: BP 126/74
[2021-03-12 06:13] VITALS: BP 120/62
[2021-03-12 08:09] LABS: GLUCOMETER DEV NAME(LOC) POC.BV
[2021-03-12 08:26] VITALS: BP 122/77
[2021-03-12] MEDS: LOSARTAN POTASSIUM 25 MG TABLET PO SCH (08:31)
[2021-03-12] MEDS: MULTIVITAMINS WITH MINERALS, THERAPEUTIC TABLET PO SCH (08:33)
[2021-03-12] MEDS: FOLIC ACID 1 MG TABLET PO SCH (08:33)
[2021-03-12] MEDS: THIAMINE 100 MG TABLET PO SCH (08:33)
[2021-03-12] MEDS: BENZTROPINE MESYLATE 1 MG TABLET PO SCH ×2 (08:33→16:34)
[2021-03-12] MEDS: HALOPERIDOL 10 MG TABLET PO SCH (08:34)
[2021-03-12 16:09] VITALS: BP 109/72
[2021-03-12] MEDS: MUPIROCIN CALCIUM 2% 22 GM OINTMENT TP SCH (16:34)
[2021-03-12] MEDS: MAGNESIUM SULFATE 454 GM BOX TP SCH (16:34)
[2021-03-13 01:05] VITALS: BP 114/68
[2021-03-13 08:30] VITALS: BP 113/81
[2021-03-13] MEDS: BENZTROPINE MESYLATE 1 MG TABLET PO SCH ×2 (08:53→16:46)
[2021-03-13] MEDS: MULTIVITAMINS WITH MINERALS, THERAPEUTIC TABLET PO SCH (08:53)
[2021-03-13] MEDS: FOLIC ACID 1 MG TABLET PO SCH (08:53)
[2021-03-13] MEDS: LOSARTAN POTASSIUM 25 MG TABLET PO SCH (08:53)
[2021-03-13] MEDS: THIAMINE 100 MG TABLET PO SCH (08:53)
[2021-03-13] MEDS: HALOPERIDOL 10 MG TABLET PO SCH (08:54)
[2021-03-13] MEDS: MUPIROCIN CALCIUM 2% 22 GM OINTMENT TP SCH ×2 (09:35→16:45)
[2021-03-13] MEDS: MAGNESIUM SULFATE 454 GM BOX TP SCH ×2 (09:35→16:45)
[2021-03-13 16:11] VITALS: BP 126/73
[2021-03-14 01:25] VITALS: BP 118/75
[2021-03-14] MEDS: THIAMINE 100 MG TABLET PO SCH (08:00)
[2021-03-14] MEDS: MULTIVITAMINS WITH MINERALS, THERAPEUTIC TABLET PO SCH (08:00)
[2021-03-14] MEDS: MUPIROCIN CALCIUM 2% 22 GM OINTMENT TP SCH ×2 (08:00→16:32)
[2021-03-14] MEDS: LOSARTAN POTASSIUM 25 MG TABLET PO SCH (08:00)
[2021-03-14] MEDS: HALOPERIDOL 10 MG TABLET PO SCH (08:01)
[2021-03-14] MEDS: FOLIC ACID 1 MG TABLET PO SCH (08:01)
[2021-03-14] MEDS: BENZTROPINE MESYLATE 1 MG TABLET PO SCH ×2 (08:01→16:32)
[2021-03-14] MEDS: MAGNESIUM SULFATE 454 GM BOX TP SCH ×2 (08:04→16:33)
[2021-03-14 08:18] VITALS: BP 113/74
[2021-03-14 17:13] VITALS: BP 122/82
[2021-03-15 04:56] VITALS: BP 117/84
[2021-03-15 07:49] LABS: BASOPHILS % (AUTO) 0.6 % (0.0-2.0); HEMATOCRIT 29.3 % (36-46); HEMOGLOBIN 9.1 g/dL (12.0-16.0); LYMPHOCYTES # (AUTO) 3.1 K/uL (1.0-4.8); LYMPHOCYTES % (AUTO) 36.1 % (22.0-44.0); MEAN CORPUSCULAR HEMOGLOBIN 21.1 pg (26.0-34.0); MEAN CORPUSCULAR VOLUME 68 fL (80-100); MONOCYTES # (AUTO) 0.5 K/uL (0.1-1.0); NEUTROPHILS # (AUTO) 4.8 K/uL (1.8-7.7); NEUTROPHILS % (AUTO) 55.3 % (40.0-70.0); PLATELET COUNT (AUTO) 315 K/uL (150-450); RED BLOOD CELL COUNT(AUTO) 4.31 MIL/uL (4.00-5.20); RED CELL DISTRIBUTION WIDTH 18.4 % (11.5-14.5)
[2021-03-15 08:04] LABS: ALANINE AMINOTRANSFERASE 16 U/L (12-78); ALBUMIN 3.2 g/dL (3.4-5.0); ALKALINE PHOSPHATASE 76 U/L (46-116); ANION GAP 3 mmol/L (8-16); ASPARTATE AMINOTRANSFERASE 13 U/L (15-37); BILIRUBIN,TOTAL 0.2 mg/dL (0.1-1.0); CALCIUM, TOTAL 9.1 mg/dL (8.8-10.5); CARBON DIOXIDE 28 mmol/L (22-29); CHLORIDE 105 mmol/L (98-107); CREATININE 0.67 mg/dL (0.60-1.30); GLOMERULAR FILTR. RATE CALC > 60 mL/min (>60); GLUCOSE,RANDOM 97 mg/dL (70-110); PHOSPHORUS 3.7 mg/dL (2.5-4.9); POTASSIUM 4.1 mmol/L (3.5-5.1); SODIUM SERUM 136 mmol/L (136-145); TOTAL PROTEIN, SERUM 7.4 g/dL (6.4-8.2); UREA NITROGEN, BLOOD 16 mg/dL (7-18)
[2021-03-15 08:17] VITALS: BP 121/83
[2021-03-15] MEDS: HALOPERIDOL 10 MG TABLET PO SCH (09:00)
[2021-03-15] MEDS: BENZTROPINE MESYLATE 1 MG TABLET PO SCH ×2 (09:00→17:00)
[2021-03-15] MEDS: FOLIC ACID 1 MG TABLET PO SCH (09:07)
[2021-03-15] MEDS: MUPIROCIN CALCIUM 2% 22 GM OINTMENT TP SCH (09:07)
[2021-03-15] MEDS: MAGNESIUM SULFATE 454 GM BOX TP SCH (09:07)
[2021-03-15] MEDS: MULTIVITAMINS WITH MINERALS, THERAPEUTIC TABLET PO SCH (09:07)
[2021-03-15] MEDS: THIAMINE 100 MG TABLET PO SCH (09:07)
[2021-03-15] MEDS: LOSARTAN POTASSIUM 25 MG TABLET PO SCH (09:07)
[2021-03-15 10:21] LABS: GLUCOMETER DEV NAME(LOC) POC.BV
[2021-03-15] MEDS: MAG HYDROX/AL HYDROX/SIMETH ES 30 ML SUSPENSION UDCUP PO PRN (13:04)
[2021-03-15 16:13] VITALS: BP 112/77
[2021-03-16 00:49] VITALS: BP 110/64
[2021-03-16 08:26] VITALS: BP 112/77
[2021-03-16] MEDS: FOLIC ACID 1 MG TABLET PO SCH (08:44)
[2021-03-16] MEDS: THIAMINE 100 MG TABLET PO SCH (08:45)
[2021-03-16] MEDS: MULTIVITAMINS WITH MINERALS, THERAPEUTIC TABLET PO SCH (08:45)
[2021-03-16] MEDS: BENZTROPINE MESYLATE 1 MG TABLET PO SCH ×2 (08:45→16:58)
[2021-03-16] MEDS: LOSARTAN POTASSIUM 25 MG TABLET PO SCH (08:46)
[2021-03-16] MEDS: HALOPERIDOL 10 MG TABLET PO SCH (08:46)
[2021-03-16 17:28] VITALS: BP 114/77
[2021-03-17 00:17] VITALS: BP 116/67
[2021-03-17] MEDS: FOLIC ACID 1 MG TABLET PO SCH (08:43)
[2021-03-17] MEDS: MULTIVITAMINS WITH MINERALS, THERAPEUTIC TABLET PO SCH (08:44)
[2021-03-17] MEDS: THIAMINE 100 MG TABLET PO SCH (08:44)
[2021-03-17] MEDS: HALOPERIDOL 10 MG TABLET PO SCH (08:44)
[2021-03-17] MEDS: LOSARTAN POTASSIUM 25 MG TABLET PO SCH (08:44)
[2021-03-17] MEDS: BENZTROPINE MESYLATE 1 MG TABLET PO SCH ×2 (08:44→17:00)
[2021-03-17 09:32] VITALS: BP 107/77
[2021-03-17 16:08] VITALS: BP 114/78
[2021-03-18 00:13] VITALS: BP 117/72
[2021-03-18] MEDS: LOSARTAN POTASSIUM 25 MG TABLET PO SCH (08:16)
[2021-03-18] MEDS: FOLIC ACID 1 MG TABLET PO SCH (08:16)
[2021-03-18] MEDS: MULTIVITAMINS WITH MINERALS, THERAPEUTIC TABLET PO SCH (08:16)
[2021-03-18] MEDS: BENZTROPINE MESYLATE 1 MG TABLET PO SCH ×2 (08:16→16:09)
[2021-03-18] MEDS: THIAMINE 100 MG TABLET PO SCH (08:16)
[2021-03-18] MEDS: HALOPERIDOL 10 MG TABLET PO SCH (08:17)
[2021-03-18 08:26] VITALS: BP 124/89
[2021-03-18 16:23] VITALS: BP 110/82
[2021-03-19 03:48] VITALS: BP 120/84
[2021-03-19] MEDS: MULTIVITAMINS WITH MINERALS, THERAPEUTIC TABLET PO SCH (08:04)
[2021-03-19] MEDS: THIAMINE 100 MG TABLET PO SCH (08:04)
[2021-03-19] MEDS: FOLIC ACID 1 MG TABLET PO SCH (08:04)
[2021-03-19] MEDS: BENZTROPINE MESYLATE 1 MG TABLET PO SCH ×2 (08:04→16:19)
[2021-03-19] MEDS: LOSARTAN POTASSIUM 25 MG TABLET PO SCH (08:04)
[2021-03-19] MEDS: PETROLATUM,WHITE 28 GM JELLY TP PRN (08:08)
[2021-03-19 08:17] VITALS: BP 108/73
[2021-03-19] MEDS: HALOPERIDOL 10 MG TABLET PO SCH (09:00)
[2021-03-19 16:11] VITALS: BP 156/78
[2021-03-20 02:51] VITALS: BP 132/77
[2021-03-20 08:24] VITALS: BP 114/88
[2021-03-20] MEDS: HALOPERIDOL 10 MG TABLET PO SCH (09:00)
[2021-03-20] MEDS: MULTIVITAMINS WITH MINERALS, THERAPEUTIC TABLET PO SCH (09:39)
[2021-03-20] MEDS: BENZTROPINE MESYLATE 1 MG TABLET PO SCH ×3 (09:39→17:00)
[2021-03-20] MEDS: LOSARTAN POTASSIUM 25 MG TABLET PO SCH (09:39)
[2021-03-20] MEDS: THIAMINE 100 MG TABLET PO SCH (09:39)
[2021-03-20] MEDS: FOLIC ACID 1 MG TABLET PO SCH (09:39)
[2021-03-20 16:10] VITALS: BP 116/90
[2021-03-21 00:56] VITALS: BP 118/84
[2021-03-21] MEDS: HALOPERIDOL 5 MG TABLET PO PRN (03:14)
[2021-03-21 08:48] VITALS: BP 124/91
[2021-03-21] MEDS: HALOPERIDOL 10 MG TABLET PO SCH (09:00)
[2021-03-21] MEDS: FOLIC ACID 1 MG TABLET PO SCH (09:20)
[2021-03-21] MEDS: BENZTROPINE MESYLATE 1 MG TABLET PO SCH ×2 (09:20→16:29)
[2021-03-21] MEDS: LOSARTAN POTASSIUM 25 MG TABLET PO SCH (09:20)
[2021-03-21] MEDS: MULTIVITAMINS WITH MINERALS, THERAPEUTIC TABLET PO SCH (09:20)
[2021-03-21] MEDS: THIAMINE 100 MG TABLET PO SCH (09:20)
[2021-03-21] MEDS: BusPIRone HCL 5 MG TABLET PO SCH ×2 (13:39→16:29)
[2021-03-21 16:09] VITALS: BP 123/96
[2021-03-22 01:25] VITALS: BP 119/97
[2021-03-22] MEDS: HALOPERIDOL 5 MG TABLET PO PRN (01:29)
[2021-03-22 08:16] VITALS: BP 115/87
[2021-03-22] MEDS: FOLIC ACID 1 MG TABLET PO SCH (08:35)
[2021-03-22] MEDS: HALOPERIDOL 10 MG TABLET PO SCH (08:36)
[2021-03-22] MEDS: THIAMINE 100 MG TABLET PO SCH (08:36)
[2021-03-22] MEDS: LOSARTAN POTASSIUM 25 MG TABLET PO SCH (08:36)
[2021-03-22] MEDS: MULTIVITAMINS WITH MINERALS, THERAPEUTIC TABLET PO SCH (08:36)
[2021-03-22] MEDS: BENZTROPINE MESYLATE 1 MG TABLET PO SCH ×2 (08:37→16:11)
[2021-03-22] MEDS: BusPIRone HCL 5 MG TABLET PO SCH ×2 (08:37→16:11)
[2021-03-22 16:10] VITALS: BP 106/80
[2021-03-23 00:01] VITALS: BP 108/62
[2021-03-23] MEDS: FOLIC ACID 1 MG TABLET PO SCH (08:27)
[2021-03-23] MEDS: MULTIVITAMINS WITH IRON TABLET PO SCH (08:27)
[2021-03-23] MEDS: BENZTROPINE MESYLATE 1 MG TABLET PO SCH ×2 (08:27→16:19)
[2021-03-23] MEDS: THIAMINE 100 MG TABLET PO SCH (08:27)
[2021-03-23] MEDS: HALOPERIDOL 10 MG TABLET PO SCH (08:27)
[2021-03-23] MEDS: BusPIRone HCL 5 MG TABLET PO SCH ×2 (08:27→16:19)
[2021-03-23] MEDS: LOSARTAN POTASSIUM 25 MG TABLET PO SCH (08:28)
[2021-03-23 08:43] VITALS: BP 126/84
[2021-03-23 17:18] VITALS: BP 114/79
[2021-03-23 17:26] LABS: GLUCOMETER DEV NAME(LOC) POC.BV
[2021-03-24 06:13] VITALS: BP 120/75
[2021-03-24 08:08] VITALS: BP 109/82
[2021-03-24] MEDS: HALOPERIDOL 10 MG TABLET PO SCH (09:32)
[2021-03-24] MEDS: BusPIRone HCL 5 MG TABLET PO SCH ×2 (09:32→16:24)
[2021-03-24] MEDS: MULTIVITAMINS WITH IRON TABLET PO SCH (09:32)
[2021-03-24] MEDS: LOSARTAN POTASSIUM 25 MG TABLET PO SCH (09:32)
[2021-03-24] MEDS: THIAMINE 100 MG TABLET PO SCH (09:32)
[2021-03-24] MEDS: FOLIC ACID 1 MG TABLET PO SCH (09:32)
[2021-03-24] MEDS: BENZTROPINE MESYLATE 1 MG TABLET PO SCH ×2 (09:32→16:24)
[2021-03-24 16:09] VITALS: BP 109/66
[2021-03-24] MEDS: HALOPERIDOL 5 MG TABLET PO PRN (16:24)
[2021-03-24] MEDS ORDERED: LORazepam 2 MG TABLET PO PRN (21:00)
[2021-03-24] MEDS: ZOLPIDEM TARTRATE 10 MG TABLET PO PRN (21:07)
[2021-03-25 04:00] VITALS: BP 110/64
[2021-03-25 08:17] VITALS: BP 107/78
[2021-03-25] MEDS: FOLIC ACID 1 MG TABLET PO SCH (09:08)
[2021-03-25] MEDS: BENZTROPINE MESYLATE 1 MG TABLET PO SCH ×2 (09:08→16:55)
[2021-03-25] MEDS: MULTIVITAMINS WITH IRON TABLET PO SCH (09:08)
[2021-03-25] MEDS: LOSARTAN POTASSIUM 25 MG TABLET PO SCH (09:08)
[2021-03-25] MEDS: THIAMINE 100 MG TABLET PO SCH (09:09)
[2021-03-25] MEDS: BusPIRone HCL 5 MG TABLET PO SCH ×2 (09:09→16:55)
[2021-03-25] MEDS: HALOPERIDOL 10 MG TABLET PO SCH (09:16)
[2021-03-25 16:24] VITALS: BP 104/72
[2021-03-26 01:10] VITALS: BP 100/77
[2021-03-26 08:16] VITALS: BP 107/74
[2021-03-26] MEDS: HALOPERIDOL 10 MG TABLET PO SCH (08:25)
[2021-03-26] MEDS: THIAMINE 100 MG TABLET PO SCH (08:25)
[2021-03-26] MEDS: BusPIRone HCL 5 MG TABLET PO SCH ×2 (08:25→16:06)
[2021-03-26] MEDS: MULTIVITAMINS WITH IRON TABLET PO SCH (08:25)
[2021-03-26] MEDS: BENZTROPINE MESYLATE 1 MG TABLET PO SCH ×2 (08:25→16:06)
[2021-03-26] MEDS: FOLIC ACID 1 MG TABLET PO SCH (08:25)
[2021-03-26] MEDS: LOSARTAN POTASSIUM 25 MG TABLET PO SCH (08:26)
[2021-03-26 16:19] VITALS: BP 106/62
[2021-03-26] MEDS: ZOLPIDEM TARTRATE 10 MG TABLET PO PRN (20:08)
[2021-03-27 00:18] VITALS: BP 102/69
[2021-03-27] MEDS: HALOPERIDOL 10 MG TABLET PO SCH (08:07)
[2021-03-27] MEDS: LOSARTAN POTASSIUM 25 MG TABLET PO SCH (08:07)
[2021-03-27] MEDS: FOLIC ACID 1 MG TABLET PO SCH (08:07)
[2021-03-27] MEDS: MULTIVITAMINS WITH IRON TABLET PO SCH (08:07)
[2021-03-27] MEDS: BusPIRone HCL 5 MG TABLET PO SCH (08:07)
[2021-03-27] MEDS: BENZTROPINE MESYLATE 1 MG TABLET PO SCH (08:07)
[2021-03-27] MEDS: THIAMINE 100 MG TABLET PO SCH (08:07)
[2021-03-27 08:09] VITALS: BP 112/78
[2021-03-27] MEDS ORDERED: HALO10 PO (09:53)
[2021-03-27] MEDS ORDERED: BUSP5TAB20 PO (09:53)
[2021-03-27] MEDS ORDERED: BENZ1TAB10 PO (09:53)
== END 2021-03-27 16:11 | disposition home or self-care (01) | DRG 753 ==
LOC: EMS 16:41 → B3A 20:31
PROVIDERS: ADMIT Psychiatry & Neurology Psychiatry; ATTEND Psychiatry & Neurology Psychiatry
DX: F31.9 Bipolar disorder, unspecified (principal); R45.851 Suicidal ideations; Z91.14 Patient's other noncompliance with medication regimen; D50.9 Iron deficiency anemia, unspecified; F15.10 Other stimulant abuse, uncomplicated; F41.9 Anxiety disorder, unspecified; G47.00 Insomnia, unspecified; Z20.822 Contact with and (suspected) exposure to COVID-19; K59.00 Constipation, unspecified; I10 Essential (primary) hypertension; Z72.0 Tobacco use; Z71.6 Tobacco abuse counseling; Z98.84 Bariatric surgery status; Z88.8 Allergy status to other drugs, medicaments and biological substances
CPT/HCPCS: 80053; 80061; 83735; 84100; 84439; 84443; 84702; 85025; 99285; G0480; J1200; J1630; J2060; Q0162

== ENCOUNTER 2022-01-08 17:29 | Inpatient (IN) | payer MEDICAID ==
[~2022-01-08] VITALS: Ht 177.8 cm; Wt 101.3 kg
[~2022-01-08 17:29] MED LIST changes: +BENZ1TAB96 PO; +BUSP5TAB20 PO; -FOLI-130 PO; -GABA-1181 PO; +HALO10TA21 PO; +LOSA-381 PO; -LOSA25TA21 PO; -MAGN400T7 PO; -MIRT30 PO; -MULT-1239 PO; -THIAMINE HCL100 MG PO; -TRAZ150T80 PO
[2022-01-08] MEDS ORDERED: FERR-82 PO (18:58)
[2022-01-08] MEDS ORDERED: DIVA125C20 PO (18:58)
[2022-01-08] MEDS ORDERED: PANT-31 PO (18:58)
[2022-01-08] MEDS ORDERED: FOLI0.4T6 PO (18:58)
[2022-01-08] MEDS ORDERED: VIT1CAPS PO (18:58)
[2022-01-08] MEDS ORDERED: OLAN5TAB94 PO (18:58)
[2022-01-08] MEDS ORDERED: ZOLPIDEM TARTRATE 10 MG TABLET PO PRN (21:00)
[2022-01-08] MEDS ORDERED: HALOPERIDOL 5 MG TABLET PO PRN (21:00)
[2022-01-08] MEDS ORDERED: PNEUMOCOCCAL VACCINE POLYVALENT 0.5 ML VIAL [PPSV23] IM. ONE (21:30)
[2022-01-08] MEDS ORDERED: INFLUENZA VIRUS VACCINE QVS 2022-23 (6MO+)/PF 60 MCG/0.5 ML SYRINGE IM. ONE (21:30)
[2022-01-08 21:33] VITALS: BP 137/82
[2022-01-09 07:21] LABS: BASOPHILS % (AUTO) 0.9 % (0.0-2.0); EOSINOPHILS % (AUTO) 8.3 % (1.0-6.0); HEMATOCRIT 29.6 % (36-46); HEMOGLOBIN 9.2 g/dL (12.0-16.0); LYMPHOCYTES # (AUTO) 1.8 K/uL (1.0-4.8); LYMPHOCYTES % (AUTO) 32.5 % (22.0-44.0); MEAN CORPUSCULAR HEMOGLOBIN 24.6 pg (26.0-34.0); MEAN CORPUSCULAR HGB CONC 31.3 G/dL (31.0-37.0); MEAN CORPUSCULAR VOLUME 79 fL (80-100); MONOCYTES # (AUTO) 0.5 K/uL (0.1-1.0); MONOCYTES % (AUTO) 8.2 % (2.0-9.0); NEUTROPHILS # (AUTO) 2.8 K/uL (1.8-7.7); NEUTROPHILS % (AUTO) 50.1 % (40.0-70.0); PLATELET COUNT (AUTO) 184 K/uL (150-450); RED BLOOD CELL COUNT(AUTO) 3.75 MIL/uL (4.00-5.20); RED CELL DISTRIBUTION WIDTH 19.6 % (11.5-14.5)
[2022-01-09 07:33] LABS: HEMOGLOBIN A1C 5.8 % (3.8-5.6)
[2022-01-09 07:45] LABS: ALANINE AMINOTRANSFERASE 17 U/L (12-78); ALBUMIN 2.5 g/dL (3.4-5.0); ALKALINE PHOSPHATASE 80 U/L (46-116); ANION GAP 3 mmol/L (8-16); ASPARTATE AMINOTRANSFERASE 22 U/L (15-37); BILIRUBIN,TOTAL 0.2 mg/dL (0.1-1.0); CALCIUM, TOTAL 8.2 mg/dL (8.8-10.5); CARBON DIOXIDE 29 mmol/L (22-29); CHLORIDE 106 mmol/L (98-107); CHOL/HDL RATIO 3.5 (3.9-5.7); CHOLESTEROL 166 mg/dL (131-200); CREATININE 0.82 mg/dL (0.60-1.30); FREE T4 (FREE THYROXINE) 0.66 ng/dL (0.76-1.46); GLOMERULAR FILTR. RATE CALC > 60 mL/min (>60); GLUCOSE,RANDOM 87 mg/dL (70-110); HCG,QUANTITATIVE < 1 mIU/mL (0-6); HDL CHOLESTEROL 48 mg/dL (40-60); LDL CHOL (CALC.) 98 mg/dL (0-130); SODIUM SERUM 138 mmol/L (136-145); THYROID STIMULATING HORMONE 1.91 uIU/mL (0.36-3.74); TOTAL PROTEIN, SERUM 6.4 g/dL (6.4-8.2); TRIGLYCERIDES 101 mg/dL (15-150); UREA NITROGEN, BLOOD 15 mg/dL (7-18)
[2022-01-09] MEDS ORDERED: BACITRACIN 28 GM OINTMENT TP PRN (08:15)
[2022-01-09] MEDS ORDERED: ONDANSETRON HCL 4 MG TABLET PO PRN (08:15)
[2022-01-09] MEDS ORDERED: PETROLATUM,WHITE 28 GM JELLY TP PRN (08:15)
[2022-01-09] MEDS ORDERED: LOPERAMIDE HCL 2 MG CAPSULE PO PRN (08:15)
[2022-01-09] MEDS ORDERED: CloNIDine HCL 0.1 MG TABLET PO PRN (08:15)
[2022-01-09] MEDS ORDERED: OMEPRAZOLE 20 MG CAPSULE PO PRN (08:15)
[2022-01-09] MEDS ORDERED: MAGNESIUM HYDROXIDE SUSPENSION 30 ML UDCUP PO PRN (08:15)
[2022-01-09] MEDS ORDERED: DOCUSATE SODIUM 100 MG CAPSULE PO PRN (08:15)
[2022-01-09] MEDS ORDERED: BENZOCAINE/MENTHOL LOZENGE PO PRN (08:15)
[2022-01-09] MEDS ORDERED: ALBUTEROL SULFATE HFA 90 MCG/PUFF 8 GM INHALER IH PRN (08:15)
[2022-01-09] MEDS ORDERED: MAG HYDROX/AL HYDROX/SIMETH ES 30 ML SUSPENSION UDCUP PO PRN (08:15)
[2022-01-09 08:24] VITALS: BP 128/93
[2022-01-09] MEDS ORDERED: [UNRECOGNIZED DRUG - OTHER] PO SCH (09:00)
[2022-01-09] MEDS: LORazepam 2 MG TABLET PO PRN (12:38)
[2022-01-09] MEDS: LOSARTAN POTASSIUM 25 MG TABLET PO SCH (12:53)
[2022-01-09] MEDS: FOLIC ACID 0.4 MG TABLET PO SCH (12:53)
[2022-01-09] MEDS: VITAMIN B COMPLEX/FOLIC ACID 1 TABLET PO SCH (12:54)
[2022-01-09 20:57] VITALS: BP 134/81
[2022-01-10] MEDS: FERROUS SULFATE 325 MG EC TABLET PO SCH (06:39)
[2022-01-10] MEDS: FOLIC ACID 0.4 MG TABLET PO SCH (08:28)
[2022-01-10] MEDS: DIVALPROEX SODIUM 500 MG DR TABLET PO SCH ×2 (08:28→16:59)
[2022-01-10] MEDS: VITAMIN B COMPLEX/FOLIC ACID 1 TABLET PO SCH (08:28)
[2022-01-10] MEDS: LOSARTAN POTASSIUM 25 MG TABLET PO SCH (08:28)
[2022-01-10] MEDS: LITHIUM CARBONATE 300 MG CAPSULE PO SCH ×2 (08:36→17:00)
[2022-01-10 09:05] VITALS: BP 118/78
[2022-01-10] MEDS: BENZTROPINE MESYLATE 2 MG TABLET PO SCH (20:12)
[2022-01-10] MEDS: HALOPERIDOL 10 MG TABLET PO SCH (20:12)
[2022-01-11] MEDS: FERROUS SULFATE 325 MG EC TABLET PO SCH (06:38)
[2022-01-11 08:14] VITALS: BP 132/66
[2022-01-11] MEDS: LITHIUM CARBONATE 300 MG CAPSULE PO SCH ×2 (09:00→16:53)
[2022-01-11] MEDS: VITAMIN B COMPLEX/FOLIC ACID 1 TABLET PO SCH (09:13)
[2022-01-11] MEDS: DIVALPROEX SODIUM 500 MG DR TABLET PO SCH ×2 (09:13→16:53)
[2022-01-11] MEDS: LOSARTAN POTASSIUM 25 MG TABLET PO SCH (09:14)
[2022-01-11] MEDS: FOLIC ACID 0.4 MG TABLET PO SCH (09:14)
[2022-01-11 20:29] VITALS: BP 116/77
[2022-01-11] MEDS: BENZTROPINE MESYLATE 2 MG TABLET PO SCH (21:00)
[2022-01-11] MEDS: HALOPERIDOL 10 MG TABLET PO SCH (21:00)
[2022-01-12] VITALS: BP 134/88
[2022-01-12] MEDS: LORazepam 2 MG TABLET PO PRN (00:12)
[2022-01-12] MEDS: FERROUS SULFATE 325 MG EC TABLET PO SCH (06:54)
[2022-01-12] MEDS: VITAMIN B COMPLEX/FOLIC ACID 1 TABLET PO SCH (08:47)
[2022-01-12] MEDS: LOSARTAN POTASSIUM 25 MG TABLET PO SCH (08:47)
[2022-01-12] MEDS: DIVALPROEX SODIUM 500 MG DR TABLET PO SCH ×2 (08:47→16:15)
[2022-01-12] MEDS: FOLIC ACID 0.4 MG TABLET PO SCH (08:47)
[2022-01-12] MEDS: LITHIUM CARBONATE 300 MG CAPSULE PO SCH ×2 (08:48→16:15)
[2022-01-12 09:00] VITALS: BP 122/73
[2022-01-12] MEDS: BENZTROPINE MESYLATE 2 MG TABLET PO SCH (20:30)
[2022-01-12] MEDS: HALOPERIDOL 10 MG TABLET PO SCH (20:30)
[2022-01-12 20:34] VITALS: BP 136/84
[2022-01-12] MEDS: IBUPROFEN 600 MG TABLET PO PRN (22:19)
[2022-01-13] MEDS: FERROUS SULFATE 325 MG EC TABLET PO SCH (06:40)
[2022-01-13 08:05] VITALS: BP 116/86
[2022-01-13] MEDS: FOLIC ACID 0.4 MG TABLET PO SCH (08:34)
[2022-01-13] MEDS: LITHIUM CARBONATE 300 MG CAPSULE PO SCH ×3 (08:35→16:37)
[2022-01-13] MEDS: VITAMIN B COMPLEX/FOLIC ACID 1 TABLET PO SCH (08:35)
[2022-01-13] MEDS: DIVALPROEX SODIUM 500 MG DR TABLET PO SCH ×2 (08:35→16:20)
[2022-01-13] MEDS: LOSARTAN POTASSIUM 25 MG TABLET PO SCH (08:35)
[2022-01-13 14:51] LABS: GLUCOMETER DEV NAME(LOC) POC.BV
[2022-01-13 16:20] VITALS: BP 120/84
[2022-01-13] MEDS: IBUPROFEN 600 MG TABLET PO PRN (16:20)
[2022-01-13] MEDS: BENZTROPINE MESYLATE 2 MG TABLET PO SCH (20:42)
[2022-01-13 20:43] VITALS: BP 114/77
[2022-01-13] MEDS: HALOPERIDOL 10 MG TABLET PO SCH (20:43)
[2022-01-14] MEDS: FERROUS SULFATE 325 MG EC TABLET PO SCH (06:59)
[2022-01-14 07:32] LABS: VALPROIC ACID 19 mcg/mL (50-100)
[2022-01-14 07:49] LABS: LITHIUM < 0.20 mmol/L (0.60-1.20)
[2022-01-14] MEDS: LOSARTAN POTASSIUM 25 MG TABLET PO SCH (08:19)
[2022-01-14] MEDS: FOLIC ACID 0.4 MG TABLET PO SCH (08:19)
[2022-01-14] MEDS: VITAMIN B COMPLEX/FOLIC ACID 1 TABLET PO SCH (08:19)
[2022-01-14] MEDS: DIVALPROEX SODIUM 500 MG DR TABLET PO SCH ×2 (08:19→16:21)
[2022-01-14 08:59] VITALS: BP 131/68
[2022-01-14] MEDS: LITHIUM CARBONATE 300 MG CAPSULE PO SCH ×2 (09:00→17:00)
[2022-01-14] MEDS: IBUPROFEN 600 MG TABLET PO PRN ×2 (16:07→22:07)
[2022-01-14 20:40] VITALS: BP 137/97
[2022-01-14] MEDS: BENZTROPINE MESYLATE 2 MG TABLET PO SCH (21:00)
[2022-01-14] MEDS: HALOPERIDOL 10 MG TABLET PO SCH (21:00)
[2022-01-14 22:08] VITALS: BP 143/92
[2022-01-15] MEDS: FERROUS SULFATE 325 MG EC TABLET PO SCH (06:52)
[2022-01-15 08:33] VITALS: BP 127/80
[2022-01-15] MEDS: LORazepam 2 MG TABLET PO PRN ×2 (08:35→09:15)
[2022-01-15] MEDS: FOLIC ACID 0.4 MG TABLET PO SCH (08:35)
[2022-01-15] MEDS: VITAMIN B COMPLEX/FOLIC ACID 1 TABLET PO SCH (08:35)
[2022-01-15] MEDS: LITHIUM CARBONATE 300 MG CAPSULE PO SCH ×3 (08:35→17:00)
[2022-01-15] MEDS: LOSARTAN POTASSIUM 25 MG TABLET PO SCH (08:36)
[2022-01-15] MEDS: DIVALPROEX SODIUM 500 MG DR TABLET PO SCH ×2 (08:36→16:40)
[2022-01-15 16:40] VITALS: BP 125/78
[2022-01-15] MEDS: IBUPROFEN 600 MG TABLET PO PRN ×2 (16:40→23:36)
[2022-01-15 20:29] VITALS: BP 117/80
[2022-01-15] MEDS: BENZTROPINE MESYLATE 2 MG TABLET PO SCH (20:36)
[2022-01-15] MEDS: HALOPERIDOL 10 MG TABLET PO SCH (20:36)
[2022-01-15 23:20] VITALS: BP 117/92
[2022-01-16] MEDS: FERROUS SULFATE 325 MG EC TABLET PO SCH (06:48)
[2022-01-16 08:16] VITALS: BP 115/69
[2022-01-16] MEDS: VITAMIN B COMPLEX/FOLIC ACID 1 TABLET PO SCH (08:37)
[2022-01-16] MEDS: LOSARTAN POTASSIUM 25 MG TABLET PO SCH (08:37)
[2022-01-16] MEDS: DIVALPROEX SODIUM 500 MG DR TABLET PO SCH ×2 (08:37→16:19)
[2022-01-16] MEDS: LITHIUM CARBONATE 300 MG CAPSULE PO SCH ×2 (08:37→16:20)
[2022-01-16] MEDS: IBUPROFEN 600 MG TABLET PO PRN ×2 (10:08→19:22)
[2022-01-16 19:22] VITALS: BP 112/70
[2022-01-16] MEDS: HALOPERIDOL 10 MG TABLET PO SCH (20:43)
[2022-01-16] MEDS: BENZTROPINE MESYLATE 2 MG TABLET PO SCH (20:43)
[2022-01-16 20:46] VITALS: BP 109/70
[2022-01-16] MEDS: LORazepam 2 MG TABLET PO PRN (21:37)
[2022-01-16] MEDS: ACETAMINOPHEN 325 MG TABLET PO PRN (22:40)
[2022-01-17] MEDS: FERROUS SULFATE 325 MG EC TABLET PO SCH (06:40)
[2022-01-17 08:37] VITALS: BP 128/70
[2022-01-17] MEDS: LITHIUM CARBONATE 300 MG CAPSULE PO SCH ×2 (09:03→16:56)
[2022-01-17] MEDS: LOSARTAN POTASSIUM 25 MG TABLET PO SCH (09:03)
[2022-01-17] MEDS: DIVALPROEX SODIUM 500 MG DR TABLET PO SCH ×2 (09:04→16:55)
[2022-01-17] MEDS: VITAMIN B COMPLEX/FOLIC ACID 1 TABLET PO SCH (09:04)
[2022-01-17 16:56] VITALS: BP 116/76
[2022-01-17] MEDS: IBUPROFEN 600 MG TABLET PO PRN (16:56)
[2022-01-17 21:20] VITALS: BP 153/103
[2022-01-17] MEDS: BENZTROPINE MESYLATE 2 MG TABLET PO SCH (21:21)
[2022-01-17] MEDS: HALOPERIDOL 10 MG TABLET PO SCH (21:22)
[2022-01-17] MEDS: ACETAMINOPHEN 325 MG TABLET PO PRN (21:25)
[2022-01-18 00:55] VITALS: BP 130/90
[2022-01-18 00:59] VITALS: BP 130/90
[2022-01-18] MEDS: IBUPROFEN 600 MG TABLET PO PRN ×4 (01:02→20:11)
[2022-01-18 01:55] VITALS: BP 130/90
[2022-01-18] MEDS: FERROUS SULFATE 325 MG EC TABLET PO SCH (06:51)
[2022-01-18] MEDS: DIVALPROEX SODIUM 500 MG DR TABLET PO SCH ×2 (08:05→16:56)
[2022-01-18] MEDS: LORazepam 2 MG TABLET PO PRN ×2 (08:05→13:23)
[2022-01-18] MEDS: LITHIUM CARBONATE 300 MG CAPSULE PO SCH ×2 (08:05→16:56)
[2022-01-18] MEDS: LOSARTAN POTASSIUM 25 MG TABLET PO SCH (08:05)
[2022-01-18] MEDS: VITAMIN B COMPLEX/FOLIC ACID 1 TABLET PO SCH (08:06)
[2022-01-18 09:07] VITALS: BP 130/76
[2022-01-18 20:05] VITALS: BP 115/78
[2022-01-18] MEDS: BENZTROPINE MESYLATE 2 MG TABLET PO SCH (21:00)
[2022-01-18] MEDS: HALOPERIDOL 10 MG TABLET PO SCH (21:00)
[2022-01-19] MEDS: ACETAMINOPHEN 325 MG TABLET PO PRN (01:13)
[2022-01-19] MEDS: FERROUS SULFATE 325 MG EC TABLET PO SCH (06:47)
[2022-01-19] MEDS: LITHIUM CARBONATE 300 MG CAPSULE PO SCH ×2 (08:10→17:52)
[2022-01-19] MEDS: LOSARTAN POTASSIUM 25 MG TABLET PO SCH (08:11)
[2022-01-19] MEDS: LORazepam 2 MG TABLET PO PRN (08:11)
[2022-01-19] MEDS: DIVALPROEX SODIUM 500 MG DR TABLET PO SCH ×2 (08:11→17:52)
[2022-01-19] MEDS: VITAMIN B COMPLEX/FOLIC ACID 1 TABLET PO SCH (08:11)
[2022-01-19] MEDS: IBUPROFEN 600 MG TABLET PO PRN (08:12)
[2022-01-19 08:39] VITALS: BP 112/62
[2022-01-19] MEDS: HALOPERIDOL 10 MG TABLET PO SCH ×2 (20:56→21:00)
[2022-01-19] MEDS: BENZTROPINE MESYLATE 2 MG TABLET PO SCH ×2 (20:56→21:00)
[2022-01-19 23:15] VITALS: BP 116/64
[2022-01-20] MEDS: FERROUS SULFATE 325 MG EC TABLET PO SCH (06:35)
[2022-01-20 08:33] VITALS: BP 140/98
[2022-01-20 08:36] LABS: GLUCOMETER DEV NAME(LOC) POC.BV
[2022-01-20] MEDS: LOSARTAN POTASSIUM 25 MG TABLET PO SCH ×2 (09:00→11:04)
[2022-01-20] MEDS: VITAMIN B COMPLEX/FOLIC ACID 1 TABLET PO SCH ×2 (09:00→11:04)
[2022-01-20] MEDS: DIVALPROEX SODIUM 500 MG DR TABLET PO SCH ×3 (09:00→17:00)
[2022-01-20] MEDS: LITHIUM CARBONATE 300 MG CAPSULE PO SCH ×3 (09:00→17:00)
[2022-01-20 20:47] VITALS: BP 116/65
[2022-01-20] MEDS: BENZTROPINE MESYLATE 2 MG TABLET PO SCH (21:00)
[2022-01-20] MEDS: HALOPERIDOL 10 MG TABLET PO SCH (21:00)
[2022-01-21] MEDS: FERROUS SULFATE 325 MG EC TABLET PO SCH (06:41)
[2022-01-21] MEDS: DIVALPROEX SODIUM 500 MG DR TABLET PO SCH (08:59)
[2022-01-21] MEDS: LOSARTAN POTASSIUM 25 MG TABLET PO SCH (08:59)
[2022-01-21] MEDS: LITHIUM CARBONATE 300 MG CAPSULE PO SCH (08:59)
[2022-01-21] MEDS: VITAMIN B COMPLEX/FOLIC ACID 1 TABLET PO SCH (08:59)
[2022-01-21 09:00] VITALS: BP 112/84
[2022-01-21] MEDS ORDERED: DIVA-112 PO (14:11)
[2022-01-21] MEDS ORDERED: BENZ2TAB76 PO (14:11)
[2022-01-21] MEDS ORDERED: HALO10TA21 PO (14:11)
[2022-01-21] MEDS ORDERED: LITH300C3 PO (14:11)
[2022-01-22] MEDS ORDERED: LOSA-381 PO (19:18)
== END 2022-01-21 16:00 | disposition home or self-care (01) | DRG 754 ==
LOC: B2S 21:01
PROVIDERS: ADMIT Psychiatry & Neurology Psychiatry; ATTEND Psychiatry & Neurology Psychiatry
DX: F32.9 Major depressive disorder, single episode, unspecified (principal); F22 Delusional disorders; D50.9 Iron deficiency anemia, unspecified; F15.10 Other stimulant abuse, uncomplicated; F41.9 Anxiety disorder, unspecified; G47.00 Insomnia, unspecified; K59.00 Constipation, unspecified; I10 Essential (primary) hypertension; Z20.822 Contact with and (suspected) exposure to COVID-19; Z71.6 Tobacco abuse counseling; Z72.0 Tobacco use; Z59.00 Homelessness unspecified; Z98.84 Bariatric surgery status; Z88.8 Allergy status to other drugs, medicaments and biological substances
CPT/HCPCS: 80053; 80061; 80164; 80178; 83036; 84439; 84443; 84702; 85025